=== PATIENT | male | born 1955 | race Caucasian/White ===

== ENCOUNTER 2018-04-11 12:47 | Inpatient (IN) | payer MEDICARE, MEDICAID ==
[~2018-04-11] VITALS: Ht 167.6 cm; Wt 68.0 kg
[~2018-04-11 12:47] MED LIST: METH40TA PO
[2018-04-11 13:29] LABS: BASOPHILS # (AUTO) 0.1 /CMM (0.0-0.2); BASOPHILS % (AUTO) 0.8 % (0.0-2.0); HEMATOCRIT 49 % (39-51); HEMOGLOBIN 16.9 g/dL (13.5-17.5); LYMPHOCYTES # (AUTO) 1.6 /CMM (0.8-4.8); LYMPHOCYTES % (AUTO) 21.7 % (20.0-44.0); MEAN CORPUSCULAR HEMOGLOBIN 32 PG (26.0-33.0); MEAN CORPUSCULAR HGB CONC 34 g/dl (31.0-36.0); MEAN CORPUSCULAR VOLUME 93 fL (80-96); MONOCYTES # (AUTO) 0.6 /CMM (0.1-1.30); MONOCYTES % (AUTO) 8.7 % (2.0-12.0); NEUTROPHILS # (AUTO) 4.9 /CMM (1.8-8.9); NEUTROPHILS % (AUTO) 65.8 % (43.0-81.0); PLATELET COUNT (AUTO) 237 /CMM (150-450); RDW COEFFICIENT OF VARIATION 12.6 (11.5-15.0); RED BLOOD CELL COUNT(AUTO) 5.29 MIL/uL (4.5-6.0); WHITE BLOOD COUNT (AUTO) 7.4 K/uL (4.3-11.0)
[2018-04-11 13:32] LABS: APPEARANCE,URINE Clear (CLEAR); BILIRUBIN,URINE Negative (NEGATIVE); BLOOD, URINE Trace-lysed Ery/uL (NEGATIVE); COLOR,URINE Yellow (YELLOW); KETONES,URINE Negative (NEGATIVE); LEUKOCYTE ESTERASE ,URINE Negative (NEGATIVE); NITRITE, URINE Negative (NEGATIVE); PROTEIN,URINE Negative (NEGATIVE); UGLUCOSE Negative (NEGATIVE); UROBILINOGEN,URINE 0.2 EU/dL (0.2)
[2018-04-11 13:40] LABS: CALCIUM, SERUM 9.5 mg/dL (8.5-10.1); CARBON DIOXIDE 33 mmol/L (21-32); CHLORIDE 101 mmol/L (98-107); CREATININE 1.3 mg/dL (0.6-1.3); GLUCOSE 97 mg/dL (74-106); POTASSIUM 3.7 mmol/L (3.5-5.1); SODIUM SERUM 137 mmol/L (136-145); UREA NITROGEN, BLOOD 17 mg/dL (7-18)
[2018-04-11 13:50] LABS: BACTERIA,URINE None seen /HPF (None Seen); MUCUS,URINE Few /LPF (None Seen); SQUAMOUS EPITHELIAL CELL,UR Few /HPF (None Seen); WBC,URINE 0-3 /HPF (0-3)
[2018-04-11 13:56] LABS: ACETAMINOPHEN < 2 ug/ml (10-30); ALANINE AMINOTRANSFERASE 55 U/L (12-78); ALBUMIN 3.9 g/dL (3.4-5.0); ALKALINE PHOSPHATASE 67 U/L (46-116); ASPARTATE AMINOTRANSFERASE 37 U/L (15-37); BILIRUBIN,DIRECT 0.2 mg/dL (0.0-0.2); BILIRUBIN,TOTAL 1.2 mg/dL (0.2-1.0); SALICYLATE 1.9 mg/dL (2.8-20.0); TOTAL PROTEIN, SERUM 8.4 g/dL (6.4-8.2)
[2018-04-11 13:57] LABS: ALCOHOL, BLOOD < 3 mg/dL (0-0)
[2018-04-11] MEDS ORDERED: HYDROCODONE/APAP 5/325MG 1 EACH TABLET ONE (14:13)
[2018-04-11] MEDS ORDERED: HYDROCODONE/APAP 5/325MG 1 EACH TABLET PO ONE (14:30)
[2018-04-11] MEDS ORDERED: HYDROCODONE/APAP 10/325MG 1 EA TABLET ONE (15:49)
[2018-04-11] MEDS ORDERED: HYDROCODONE/APAP 10/325MG 1 EA TABLET PO ONE (16:00)
[2018-04-11] MEDS ORDERED: ALPR0.5T PO (16:14)
[2018-04-11] MEDS ORDERED: ASPI-1152 PO (16:14)
[2018-04-11] MEDS ORDERED: ZOLP10TA2 PO (16:14)
[2018-04-11] MEDS ORDERED: METO-356 PO (16:14)
[2018-04-11] MEDS ORDERED: ATOR40TA PO (16:14)
[2018-04-11 16:30] VITALS: BP 137/77
[2018-04-11] MEDS ORDERED: ACETAMINOPHEN 325 MG TABLET PO PRN (16:30)
[2018-04-11] MEDS ORDERED: MAG HYDROX/AL HYDROX/SIMETH 30 ML UDC PO PRN (16:30)
[2018-04-11] MEDS ORDERED: MAGNESIUM HYDROXIDE 30 ML UDC PO PRN (16:30)
[2018-04-11] MEDS: LORAZEPAM 0.5 MG TABLET PO PRN (19:20)
[2018-04-11 20:10] VITALS: BP 101/60
[2018-04-11] MEDS ORDERED: HYDROCODONE/APAP 10/325MG 1 EA TABLET PO PRN (21:30)
[2018-04-11] MEDS: ATORVASTATIN 40 MG TABLET PO SCH (21:41)
[2018-04-11] MEDS: TEMAZEPAM 7.5 MG CAPSULE PO PRN (22:03)
[2018-04-12] MEDS ORDERED: HYDROCODONE/APAP 10/325MG 1 EA TABLET PO ONE (05:00)
[2018-04-12] MEDS: LORAZEPAM 0.5 MG TABLET PO PRN ×3 (05:25→19:20)
[2018-04-12 08:00] VITALS: BP 106/74
[2018-04-12] MEDS: ASPIRIN EC 81 MG TABLET.DR PO SCH (08:18)
[2018-04-12] MEDS: DOCUSATE SODIUM 100 MG CAPSULE PO SCH (08:18)
[2018-04-12] MEDS: METOPROLOL SUCCINATE 25 MG TAB.SR.24H PO SCH (08:18)
[2018-04-12 11:17] LABS: CHOLESTEROL 142 mg/dL (<200); HDL CHOLESTEROL 42 mg/dL (40-60); LDL 87 mg/dL (0-99); TRIGLYCERIDES 96 mg/dL (30-150)
[2018-04-12 11:19] LABS: ALBUMIN 3.2 g/dL (3.4-5.0); BILIRUBIN,TOTAL 1.1 mg/dL (0.2-1.0); CALCIUM, SERUM 8.5 mg/dL (8.5-10.1); CREATININE 1.3 mg/dL (0.6-1.3); POTASSIUM 3.7 mmol/L (3.5-5.1); TOTAL PROTEIN, SERUM 6.8 g/dL (6.4-8.2)
[2018-04-12 16:56] VITALS: BP 101/70
[2018-04-12] MEDS: HYDROCODONE/APAP 10/325MG 1 EA TABLET PO PRN (17:53)
[2018-04-12 19:52] VITALS: BP 101/60
[2018-04-12] MEDS: ATORVASTATIN 40 MG TABLET PO SCH (21:10)
[2018-04-12] MEDS: DULOXETINE HCL 30 MG CAPSULE.DR PO SCH (21:10)
[2018-04-12] MEDS: TEMAZEPAM 7.5 MG CAPSULE PO PRN (21:48)
[2018-04-13 08:06] VITALS: BP 118/80
[2018-04-13] MEDS: ASPIRIN EC 81 MG TABLET.DR PO SCH (08:17)
[2018-04-13] MEDS: LORAZEPAM 0.5 MG TABLET PO PRN ×2 (08:17→15:18)
[2018-04-13] MEDS: DOCUSATE SODIUM 100 MG CAPSULE PO SCH (08:17)
[2018-04-13] MEDS: METOPROLOL SUCCINATE 25 MG TAB.SR.24H PO SCH (08:18)
[2018-04-13] MEDS: HYDROCODONE/APAP 10/325MG 1 EA TABLET PO PRN ×2 (10:23→20:38)
[2018-04-13 16:00] VITALS: BP 106/65
[2018-04-13 20:00] VITALS: BP 101/64
[2018-04-13 20:01] VITALS: BP 101/64
[2018-04-13] MEDS: DULOXETINE HCL 30 MG CAPSULE.DR PO SCH (20:38)
[2018-04-13] MEDS: ATORVASTATIN 40 MG TABLET PO SCH (20:38)
[2018-04-14] MEDS: TEMAZEPAM 7.5 MG CAPSULE PO PRN ×2 (02:03→21:37)
[2018-04-14 08:00] VITALS: BP 113/78
[2018-04-14] MEDS: ASPIRIN EC 81 MG TABLET.DR PO SCH (08:42)
[2018-04-14] MEDS: DOCUSATE SODIUM 100 MG CAPSULE PO SCH (08:42)
[2018-04-14] MEDS: METOPROLOL SUCCINATE 25 MG TAB.SR.24H PO SCH (08:42)
[2018-04-14] MEDS: LORAZEPAM 0.5 MG TABLET PO PRN ×2 (09:05→19:41)
[2018-04-14] MEDS: HYDROCODONE/APAP 10/325MG 1 EA TABLET PO PRN (15:18)
[2018-04-14 16:00] VITALS: BP 107/70
[2018-04-14 20:00] VITALS: BP 119/77
[2018-04-14] MEDS: ATORVASTATIN 40 MG TABLET PO SCH (21:36)
[2018-04-14] MEDS: DULOXETINE HCL 30 MG CAPSULE.DR PO SCH (21:36)
[2018-04-15 08:00] VITALS: BP 113/64
[2018-04-15] MEDS: ASPIRIN EC 81 MG TABLET.DR PO SCH (08:31)
[2018-04-15] MEDS: DOCUSATE SODIUM 100 MG CAPSULE PO SCH (08:31)
[2018-04-15] MEDS: METOPROLOL SUCCINATE 25 MG TAB.SR.24H PO SCH (08:32)
[2018-04-15] MEDS: LORAZEPAM 0.5 MG TABLET PO PRN ×2 (12:48→20:05)
[2018-04-15] MEDS ORDERED: LORAZEPAM 0.5 MG TABLET PO ONE (14:30)
[2018-04-15 16:00] VITALS: BP 107/65
[2018-04-15 20:00] VITALS: BP 112/68
[2018-04-15] MEDS: ATORVASTATIN 40 MG TABLET PO SCH (21:29)
[2018-04-15] MEDS: HYDROCODONE/APAP 10/325MG 1 EA TABLET PO PRN (21:29)
[2018-04-15] MEDS: DULOXETINE HCL 30 MG CAPSULE.DR PO SCH (21:29)
[2018-04-15] MEDS: TEMAZEPAM 7.5 MG CAPSULE PO PRN (22:36)
[2018-04-16 08:00] VITALS: BP 116/79
[2018-04-16] MEDS: ASPIRIN EC 81 MG TABLET.DR PO SCH (08:33)
[2018-04-16] MEDS: DOCUSATE SODIUM 100 MG CAPSULE PO SCH (08:33)
[2018-04-16] MEDS: METOPROLOL SUCCINATE 25 MG TAB.SR.24H PO SCH (08:34)
[2018-04-16] MEDS: LORAZEPAM 0.5 MG TABLET PO PRN ×2 (08:37→19:49)
[2018-04-16] MEDS: HYDROCODONE/APAP 10/325MG 1 EA TABLET PO PRN (13:18)
[2018-04-16 16:04] VITALS: BP 106/72
[2018-04-16 19:42] VITALS: BP 109/73
[2018-04-16] MEDS: ATORVASTATIN 40 MG TABLET PO SCH (21:04)
[2018-04-16] MEDS: DULOXETINE HCL 30 MG CAPSULE.DR PO SCH (21:05)
[2018-04-17 08:00] VITALS: BP 133/72
[2018-04-17] MEDS: DOCUSATE SODIUM 100 MG CAPSULE PO SCH (08:35)
[2018-04-17] MEDS: ASPIRIN EC 81 MG TABLET.DR PO SCH (08:35)
[2018-04-17] MEDS: METOPROLOL SUCCINATE 25 MG TAB.SR.24H PO SCH (08:36)
[2018-04-17] MEDS: LORAZEPAM 0.5 MG TABLET PO PRN ×2 (12:16→20:51)
[2018-04-17 16:00] VITALS: BP 123/86
[2018-04-17] MEDS: HYDROCODONE/APAP 10/325MG 1 EA TABLET PO PRN (17:47)
[2018-04-17 20:47] VITALS: BP 116/52
[2018-04-17] MEDS: ATORVASTATIN 40 MG TABLET PO SCH (21:02)
[2018-04-17] MEDS: DULOXETINE HCL 30 MG CAPSULE.DR PO SCH (21:02)
[2018-04-17] MEDS: TEMAZEPAM 7.5 MG CAPSULE PO PRN (22:13)
[2018-04-18 07:44] LABS: CALCIUM, SERUM 8.2 mg/dL (8.5-10.1); CREATININE 1.1 mg/dL (0.6-1.3); POTASSIUM 3.8 mmol/L (3.5-5.1)
[2018-04-18 08:00] VITALS: BP 119/86
[2018-04-18] MEDS: ASPIRIN EC 81 MG TABLET.DR PO SCH (08:22)
[2018-04-18] MEDS: DOCUSATE SODIUM 100 MG CAPSULE PO SCH (08:22)
[2018-04-18] MEDS: METOPROLOL SUCCINATE 25 MG TAB.SR.24H PO SCH (08:23)
[2018-04-18] MEDS: LORAZEPAM 0.5 MG TABLET PO PRN ×2 (12:39→18:47)
[2018-04-18] MEDS ORDERED: LORAZEPAM 0.5 MG TABLET PO ONE (13:00)
[2018-04-18] MEDS: HYDROCODONE/APAP 10/325MG 1 EA TABLET PO PRN (14:10)
[2018-04-18 17:00] VITALS: BP 128/70
[2018-04-18 17:06] VITALS: BP 128/70
[2018-04-18] MEDS: DULOXETINE HCL 30 MG CAPSULE.DR PO SCH (22:10)
[2018-04-18] MEDS: ATORVASTATIN 40 MG TABLET PO SCH (22:10)
[2018-04-18] MEDS: TEMAZEPAM 7.5 MG CAPSULE PO PRN (22:14)
[2018-04-19 06:43] VITALS: BP 114/78
[2018-04-19] MEDS: HYDROCODONE/APAP 10/325MG 1 EA TABLET PO PRN ×2 (07:19→12:56)
[2018-04-19] MEDS: DOCUSATE SODIUM 100 MG CAPSULE PO SCH (08:25)
[2018-04-19] MEDS: METOPROLOL SUCCINATE 25 MG TAB.SR.24H PO SCH (08:26)
[2018-04-19] MEDS: ASPIRIN EC 81 MG TABLET.DR PO SCH (08:26)
[2018-04-19] MEDS ORDERED: TRAMADOL HCL 50 MG TABLET PO PRN (12:00)
[2018-04-19 20:00] VITALS: BP 96/55
[2018-04-19] MEDS: DULOXETINE HCL 30 MG CAPSULE.DR PO SCH (21:21)
[2018-04-19] MEDS: ATORVASTATIN 40 MG TABLET PO SCH (21:21)
[2018-04-20] MEDS: LORAZEPAM 0.5 MG TABLET PO PRN ×2 (04:06→13:35)
[2018-04-20 08:00] VITALS: BP 124/78
[2018-04-20 08:57] VITALS: BP 124/78
[2018-04-20] MEDS: HYDROCODONE/APAP 10/325MG 1 EA TABLET PO PRN ×2 (08:57→13:36)
[2018-04-20] MEDS: METOPROLOL SUCCINATE 25 MG TAB.SR.24H PO SCH (08:57)
[2018-04-20] MEDS: DOCUSATE SODIUM 100 MG CAPSULE PO SCH (08:57)
[2018-04-20] MEDS: ASPIRIN EC 81 MG TABLET.DR PO SCH (08:58)
== END 2018-04-20 15:30 | DRG 885 ==
LOC: ER 12:48 → GPS 16:07 → GPSOV2 04-18 16:56
PROVIDERS: ADMIT Psychiatry & Neurology Psychiatry; ATTEND Internal Medicine
DX: F32.2 Major depressive disorder, single episode, severe without psychotic features (principal); N17.0 Acute kidney failure with tubular necrosis; R45.851 Suicidal ideations; E44.1 Mild protein-calorie malnutrition; J45.909 Unspecified asthma, uncomplicated; Z87.891 Personal history of nicotine dependence; E78.5 Hyperlipidemia, unspecified; I10 Essential (primary) hypertension; K21.9 Gastro-esophageal reflux disease without esophagitis; G89.29 Other chronic pain; E88.09 Other disorders of plasma-protein metabolism, not elsewhere classified; Z68.24 Body mass index [BMI] 24.0-24.9, adult; I70.90 Unspecified atherosclerosis
CPT/HCPCS: 36415; 80048-TC; 80053-TC; 80061-TC; 80076-TC; 80305; 81000-TC; 85025-TC; 87081-TC; A4606; G0480; Z7610

== ENCOUNTER 2018-07-26 16:27 | Emergency (ER) | payer MEDICARE, MEDICAID ==
[~2018-07-26] VITALS: Ht 172.7 cm; Wt 90.7 kg
[~2018-07-26 16:27] MED LIST changes: +ASPI-1152 PO; +ATOR40TA PO; -METH40TA PO; +METO-356 PO
--- NOTE | 2018-07-26 16:50 | NUR ---
PT BIBA From [facility] C/O Abdominal pain, PT IS AOX4, NOT IN RESPIRATORY DISTRESS, V/S STABLE, KEPT RESTED AND COMFORTABLE.
[2018-07-26 16:59] LABS: APPEARANCE,URINE Clear (CLEAR); BILIRUBIN,URINE Negative (NEGATIVE); BLOOD, URINE Trace-lysed Ery/uL (NEGATIVE); COLOR,URINE Yellow (YELLOW); KETONES,URINE Negative (NEGATIVE); LEUKOCYTE ESTERASE ,URINE Negative (NEGATIVE); NITRITE, URINE Negative (NEGATIVE); PROTEIN,URINE Negative (NEGATIVE); UGLUCOSE Negative (NEGATIVE); UROBILINOGEN,URINE 0.2 EU/dL (0.2)
[2018-07-26] MEDS ORDERED: ONDANSETRON HCL/PF 4 MG/2 ML VIAL IVP ONE (17:00)
[2018-07-26] MEDS ORDERED: IV NS 0.9% 1,000 ML BAG IV ONE (17:00)
--- NOTE | 2018-07-26 17:00 | NUR ---
DR. GAR AT BEDSIDE FOR EVAL.
[2018-07-26 17:03] LABS: BASOPHILS # (AUTO) 0.1 /CMM (0.0-0.2); EOSINOPHILS % (AUTO) 5.1 % (0.0-6.0); HEMATOCRIT 47 % (39-51); HEMOGLOBIN 15.9 g/dL (13.5-17.5); LYMPHOCYTES # (AUTO) 1.5 /CMM (0.8-4.8); LYMPHOCYTES % (AUTO) 25.4 % (20.0-44.0); MEAN CORPUSCULAR HGB CONC 34 g/dl (31.0-36.0); MEAN CORPUSCULAR VOLUME 97 fL (80-96); MONOCYTES # (AUTO) 0.7 /CMM (0.1-1.30); MONOCYTES % (AUTO) 11.5 % (2.0-12.0); NEUTROPHILS # (AUTO) 3.3 /CMM (1.8-8.9); PLATELET COUNT (AUTO) 164 /CMM (150-450); RED BLOOD CELL COUNT(AUTO) 4.85 MIL/uL (4.5-6.0); WHITE BLOOD COUNT (AUTO) 5.8 K/uL (4.3-11.0)
[2018-07-26] MEDS ORDERED: ONDANSETRON HCL/PF 4 MG/2 ML VIAL ONE (17:09)
[2018-07-26 17:12] LABS: CALCIUM, SERUM 8.6 mg/dL (8.5-10.1); CREATININE 1.1 mg/dL (0.6-1.3); POTASSIUM 4.4 mmol/L (3.5-5.1)
[2018-07-26] MEDS ORDERED: HYDROMORPHONE 1 MG/1 ML DISP.SYRIN ONE (17:16)
[2018-07-26 17:18] LABS: ALBUMIN 3.8 g/dL (3.4-5.0); BILIRUBIN,DIRECT 0.2 mg/dL (0.0-0.2); BILIRUBIN,TOTAL 0.7 mg/dL (0.2-1.0); TOTAL PROTEIN, SERUM 8.4 g/dL (6.4-8.2)
[2018-07-26 17:21] LABS: BACTERIA,URINE Rare /HPF (None Seen); RBC,URINE 0-2 /HPF (0-2); SQUAMOUS EPITHELIAL CELL,UR Few /HPF (None Seen); WBC,URINE 0-2 /HPF (0-3)
--- NOTE | 2018-07-26 17:25 | NUR ---
WHEELED TO CT SCAN VIA [facility].
[2018-07-26] MEDS ORDERED: HYDROMORPHONE INJ 2 MG/ML DISP.SYRIN IV ONE (17:30)
[2018-07-26] MEDS ORDERED: ACETAMINOPHEN ES 500 MG TABLET ONE (18:27)
[2018-07-26] MEDS ORDERED: ACETAMINOPHEN ES 500 MG TABLET PO ONE (18:30)
--- NOTE | 2018-07-26 19:10 | NUR ---
IV removed. Catheter intact and site benign. Pressure and 4x4 applied to site. No bleeding noted. Patient discharged to home in stable condition. Written and verbal after care instructions given. Patient verbalizes understanding of instruction.
[2018-07-26 19:25] VITALS: BP 134/87
--- NOTE | 2018-07-26 19:38 | NUR ---
[facility] CALLED FOR TRANSPORT. ETA [id number]. TRIP #[id number]
--- NOTE | 2018-07-26 21:06 | NUR ---
[facility] AT BEDSIDE FOR TRANSPORT [facility].
== END 2018-07-26 19:26 | disposition home or self-care (01) ==
LOC: ER 16:30
DX: R10.12 Left upper quadrant pain (principal); B34.9 Viral infection, unspecified; I10 Essential (primary) hypertension; M54.5 Low back pain; F22 Delusional disorders; Z98.890 Other specified postprocedural states; Z79.82 Long term (current) use of aspirin
CPT/HCPCS: 36415; 71045; 74176; 80048; 80076; 81001; 83690; 85025; 87086; 96374; 96375; 99284; A4606; J1170; J2405; J7030; 81000-TC; Z7610

== ENCOUNTER 2018-09-19 11:00 | Outpatient (CLI) | payer MEDICARE | END 2018-09-19 23:59 | LOC: MSC 11:00 | PROVIDERS: ATTEND Anesthesiology | DX: M51.36 Other intervertebral disc degeneration, lumbar region (principal); M54.16 Radiculopathy, lumbar region; M62.830 Muscle spasm of back; M25.562 Pain in left knee; M25.561 Pain in right knee; F20.9 Schizophrenia, unspecified; F32.9 Major depressive disorder, single episode, unspecified; I10 Essential (primary) hypertension ==